=== PATIENT | female | born 1965 | race African-American/Black ===

== ENCOUNTER 2022-09-02 05:24 | Day surgery (SDC) | payer OTHER ==
[2022-08-31 13:36] VITALS: BMI 37.9
[2022-09-02 12:41] VITALS: TEMP 97.2
[2022-09-02 13:16] VITALS: BP 100/66; PULSE 71; RESP 13
== END 2022-09-02 13:20 | disposition home or self-care (01) ==
LOC: JASU-ENDO 05:24
PROVIDERS: ATTEND Internal Medicine Gastroenterology
PROC: 0DJD8ZZ Inspection of Lower Intestinal Tract, Via Natural or Artificial Opening Endoscopic (ICD-10-PCS; principal; 2022-09-02 12:30)
DX: Z12.11 Encounter for screening for malignant neoplasm of colon (principal); K64.8 Other hemorrhoids